=== PATIENT | female | born 1980 | race African-American/Black ===

== ENCOUNTER 2017-07-26 03:38 | Emergency (ER) | payer MEDICAID ==
[~2017-07-26] VITALS: Ht 162.6 cm; Wt 50.0 kg
[~2017-07-26 03:38] MED LIST: FAMO-135
[2017-07-26] MEDS ORDERED: SODIUM CHLORIDE 0.9% 1,000 ML IV ONE (04:39)
[2017-07-26] MEDS ORDERED: FAMOTIDINE 20MG/2ML VIAL IV STA (04:39)
[2017-07-26] MEDS ORDERED: ONDANSETRON HCL 4MG/2ML VIAL IV STA (04:39)
[2017-07-26] MEDS ORDERED: MORPHINE SULFATE 4 MG/ML CPJ (NOT FOR IM USE) IV STA (04:41)
[2017-07-26 04:57] LABS: CHLORIDE 107 mEq/L (98-107)
[2017-07-26 04:59] LABS: BASOPHILS % 0.3 % (0.0-2.0); EOSINOPHILS % 0.3 % (0.0-5.0); HEMATOCRIT. 39.8 % (36.0-48.0); LYMPHOCYTES % 35.7 % (20.0-50.0); MEAN CORPUSCULAR HEMOGLOBIN 33.6 pg (28.0-32.0); MEAN CORPUSCULAR VOLUME 95.6 fL (81.0-99.0); MEAN PLATELET VOLUME 7.9 fl (7.4-10.4); MONOCYTES % 9.5 % (2.0-8.0); NEUTROPHILS % 54.2 % (40.0-76.0); PLATELET 340 x1000/uL (130-400); RED BLOOD CELL COUNT 4.17 mill/uL (4.2-5.4); RED CELL DISTRIBUTION WIDTH 12.3 % (11.6-14.6)
[2017-07-26 05:01] LABS: ETHANOL BLOOD < 10 mg/dL
[2017-07-26 05:01] LABS: CLARITY URINE CLEAR (CLEAR); COLOR URINE DARK YELLOW (YELLOW); KETONES URINE 4+ (NEGATIVE); LEUKOCYTE ESTERASE URINE TRACE (NEGATIVE); NITRITE URINE NEGATIVE (NEGATIVE); OCCULT BLOOD URINE 3+ (NEGATIVE); PH URINE 5.5 (4.5-8.0); PROTEIN URINE TRACE (NEGATIVE)
[2017-07-26 05:07] LABS: INR 1.1; PROTHROMBIN TIME 11.4 sec (9.4-11.6)
[2017-07-26 05:12] LABS: *AMPHETAMINES SCREEN URINE NEGATIVE (NEGATIVE); *BARBITURATES SCREEN URINE NEGATIVE (NEGATIVE); *BENZODIAZEPINES SCREEN URINE NEGATIVE (NEGATIVE); *COCAINE SCREEN URINE NEGATIVE (NEGATIVE)
[2017-07-26 05:13] LABS: METHADONE URINE SCREEN NEGATIVE (NEGATIVE); PHENCYCLIDINE URINE SCREEN NEGATIVE (NEGATIVE)
[2017-07-26 05:36] LABS: OPIATES URINE SCREEN PRESUMTIVE POSITIVE (NEGATIVE)
[2017-07-26 05:37] LABS: CANNABINOID URINE SCREEN PRESUMTIVE POSITIVE (NEGATIVE)
[2017-07-26] MEDS ORDERED: KETOROLAC 30MG/ML VIAL IV ONE (08:00)
[2017-07-26] MEDS ORDERED: METOCLOPRAMIDE HCL 10MG/2ML VIAL IV ONE (08:00)
[2017-07-26 08:06] VITALS: BP 112/53
[2017-07-26 14:03] LABS: UCG SCREEN NEGATIVE
== END 2017-07-26 08:15 | disposition home or self-care (01) ==
LOC: ER 03:38
DX: T40.7X5A Adverse effect of cannabis (derivatives), initial encounter (principal); N39.0 Urinary tract infection, site not specified; K21.9 Gastro-esophageal reflux disease without esophagitis; Z88.5 Allergy status to narcotic agent; Y92.89 Other specified places as the place of occurrence of the external cause
CPT/HCPCS: 36415; 76705; 76830; 76856; 80053; 80305; 81003; 81025; 83690; 85025; 85610; 96361; 96374; 96375; 99285; G0482; J1885; J2270; J2405; J2765; J3490; J7030; Z7610

== ENCOUNTER 2017-12-09 08:17 | Emergency (ER) | payer MEDICAID ==
[~2017-12-09] VITALS: Ht 162.6 cm; Wt 66.0 kg
[2017-12-09] MEDS ORDERED: SODIUM CHLORIDE 0.9% 1,000 ML IV ONE (10:27)
[2017-12-09] MEDS ORDERED: MORPHINE SULFATE 4 MG/ML CPJ (NOT FOR IM USE) IV STA (10:27)
[2017-12-09] MEDS ORDERED: PANTOPRAZOLE SODIUM 40 MG/VIAL IV STA (10:27)
[2017-12-09] MEDS ORDERED: ONDANSETRON HCL 4MG/2ML INJ IV STA (10:27)
[2017-12-09 11:47] LABS: BASOPHILS % 0.1 % (0.0-2.0); EOSINOPHILS % 0.2 % (0.0-5.0); HEMATOCRIT. 41.7 % (36.0-48.0); HEMOGLOBIN. 14.2 g/dL (12.0-16.0); LYMPHOCYTES % 41.8 % (20.0-50.0); MEAN CORPUSCULAR HEMOGLOBIN 32.9 pg (28.0-32.0); MEAN CORPUSCULAR VOLUME 96.4 fL (81.0-99.0); MEAN PLATELET VOLUME 7.9 fl (7.4-10.4); MONOCYTES % 9.6 % (2.0-8.0); NEUTROPHILS % 48.3 % (40.0-76.0); PLATELET 271 x1000/uL (130-400); RED BLOOD CELL COUNT 4.32 mill/uL (4.2-5.4); RED CELL DISTRIBUTION WIDTH 12.6 % (11.6-14.6)
[2017-12-09 11:55] LABS: CHLORIDE 103 mEq/L (98-107); INR 1.1; PROTHROMBIN TIME 10.6 sec (9.1-11.1)
[2017-12-09 11:58] LABS: HCG SCREEN NEGATIVE
[2017-12-09 12:44] LABS: CLARITY URINE CLEAR (CLEAR); COLOR URINE DARK YELLOW (YELLOW); KETONES URINE 4+ (NEGATIVE); LEUKOCYTE ESTERASE URINE NEGATIVE (NEGATIVE); NITRITE URINE NEGATIVE (NEGATIVE); OCCULT BLOOD URINE NEGATIVE (NEGATIVE); PROTEIN URINE 1+ (NEGATIVE); SPECIFIC GRAVITY URINE 1.034 (1.005-1.030)
[2017-12-09] MEDS ORDERED: ONDANSETRON HCL 4MG/2ML INJ IV ONE (14:00)
[2017-12-09] MEDS ORDERED: MAGNESIUM/ALUMINUM HYDROXIDE/SIMETHICONE 30ML UDC PO STA (14:40)
[2017-12-09] MEDS ORDERED: VISCOUS LIDOCAINE 2% 15 ML UDC PO STA (14:40)
[2017-12-09 15:42] VITALS: BP 127/77
== END 2017-12-09 15:43 | disposition home or self-care (01) ==
LOC: ER 10:58
DX: K29.70 Gastritis, unspecified, without bleeding (principal); E87.6 Hypokalemia; R03.0 Elevated blood-pressure reading, without diagnosis of hypertension; Z88.5 Allergy status to narcotic agent
CPT/HCPCS: 36415; 80053; 81003; 81025; 83605; 83690; 84703; 85025; 85610; 96361; 96374; 96375; 96376; 99285; C9113; J2270; J2405; J7030

== ENCOUNTER 2019-01-02 04:59 | Emergency (ER) | payer MEDICAID ==
[~2019-01-02] VITALS: Ht 162.6 cm; Wt 50.0 kg
[2019-01-02 05:35] LABS: BASOPHILS % 0.4 % (0.0-2.0); EOSINOPHILS % 0.2 % (0.0-5.0); HEMATOCRIT. 39.5 % (36.0-48.0); HEMOGLOBIN. 13.6 g/dL (12.0-16.0); LYMPHOCYTES % 37.6 % (20.0-50.0); MEAN CORPUSCULAR HEMOGLOBIN 33.9 pg (28.0-32.0); MEAN CORPUSCULAR VOLUME 98.7 fL (81.0-99.0); MEAN PLATELET VOLUME 7.8 fl (7.4-10.4); MONOCYTES % 9.4 % (2.0-8.0); NEUTROPHILS % 52.4 % (40.0-76.0); PLATELET 265 x1000/uL (130-400); RED CELL DISTRIBUTION WIDTH 12.5 % (11.6-14.6)
[2019-01-02 05:42] LABS: CHLORIDE 107 mEq/L (98-107)
[2019-01-02 05:44] LABS: PROTHROMBIN TIME 10.7 sec (9.6-11.0)
[2019-01-02] MEDS ORDERED: ONDANSETRON HCL 4MG/2ML INJ IV STA (06:12)
[2019-01-02] MEDS ORDERED: KETOROLAC 30MG/ML VIAL IV STA (06:12)
[2019-01-02] MEDS ORDERED: MORPHINE SULFATE 4 MG/ML CPJ (NOT FOR IM USE) IV STA (06:12)
[2019-01-02] MEDS ORDERED: SODIUM CHLORIDE 0.9% 1,000 ML IV ONE (06:12)
[2019-01-02] MEDS ORDERED: FAMOTIDINE 20MG/2ML VIAL IV ONE (06:15)
[2019-01-02 06:33] LABS: HCG SCREEN NEGATIVE
[2019-01-02 06:53] LABS: CLARITY URINE CLOUDY (CLEAR); COLOR URINE ORANGE (YELLOW); KETONES URINE 4+ (NEGATIVE); LEUKOCYTE ESTERASE URINE TRACE (NEGATIVE); NITRITE URINE NEGATIVE (NEGATIVE); OCCULT BLOOD URINE 3+ (NEGATIVE); PROTEIN URINE 2+ (NEGATIVE); SPECIFIC GRAVITY URINE 1.039 (1.005-1.030)
[2019-01-02 07:17] VITALS: BP 101/55
[2019-01-02 07:54] LABS: *AMPHETAMINES SCREEN URINE NEGATIVE (NEGATIVE); *BARBITURATES SCREEN URINE NEGATIVE (NEGATIVE); *BENZODIAZEPINES SCREEN URINE NEGATIVE (NEGATIVE); *COCAINE SCREEN URINE NEGATIVE (NEGATIVE); METHADONE URINE SCREEN NEGATIVE (NEGATIVE); PHENCYCLIDINE URINE SCREEN NEGATIVE (NEGATIVE)
[2019-01-02 08:03] LABS: CANNABINOID URINE SCREEN PRESUMTIVE POSITIVE (NEGATIVE); OPIATES URINE SCREEN PRESUMTIVE POSITIVE (NEGATIVE)
== END 2019-01-02 08:33 | disposition home or self-care (01) ==
LOC: ER 04:59
DX: K85.90 Acute pancreatitis without necrosis or infection, unspecified (principal); E87.8 Other disorders of electrolyte and fluid balance, not elsewhere classified; R11.2 Nausea with vomiting, unspecified; F10.10 Alcohol abuse, uncomplicated; Y90.0 Blood alcohol level of less than 20 mg/100 ml; Z98.890 Other specified postprocedural states; Z88.5 Allergy status to narcotic agent
CPT/HCPCS: 36415; 80053; 80305; 81003; 81025; 83690; 84703; 85025; 85610; 96374; 96375; 99283; J1885; J2270; J2405; J3490; J7030

== ENCOUNTER 2019-04-10 18:54 | Emergency (ER) | payer OTHER ==
[~2019-04-10] VITALS: Ht 162.6 cm; Wt 48.0 kg
[2019-04-10] MEDS ORDERED: SODIUM CHLORIDE 0.9% 1,000 ML IV ONE (22:23)
[2019-04-10] MEDS ORDERED: MAGNESIUM/ALUMINUM HYDROXIDE/SIMETHICONE 30ML UDC PO STA (22:23)
[2019-04-10] MEDS ORDERED: MORPHINE SULFATE 4 MG/ML CPJ (NOT FOR IM USE) IV STA (22:23)
[2019-04-10] MEDS ORDERED: HALOPERIDOL LACTATE 5MG/ML VIAL IM ONE (22:30)
[2019-04-10 22:51] LABS: BASOPHILS % 0.1 % (0.0-2.0); EOSINOPHILS % 0.4 % (0.0-5.0); HEMATOCRIT. 43.5 % (36.0-48.0); HEMOGLOBIN. 14.7 g/dL (12.0-16.0); MEAN CORPUSCULAR VOLUME 97.6 fL (81.0-99.0); MEAN PLATELET VOLUME 7.4 fl (7.4-10.4); MONOCYTES % 2.6 % (2.0-8.0); NEUTROPHILS % 85.9 % (40.0-76.0); PLATELET 262 x1000/uL (130-400); RED BLOOD CELL COUNT 4.46 mill/uL (4.2-5.4); RED CELL DISTRIBUTION WIDTH 12.6 % (11.6-14.6)
[2019-04-10 22:57] LABS: CHLORIDE 110 mEq/L (98-107)
[2019-04-10 22:58] LABS: INR 1.1; PROTHROMBIN TIME 11.3 sec (9.6-11.0)
[2019-04-10 23:00] LABS: ETHANOL BLOOD < 10 mg/dL
[2019-04-11 00:02] LABS: CLARITY URINE CLEAR (CLEAR); COLOR URINE YELLOW (YELLOW); KETONES URINE 4+ (NEGATIVE); LEUKOCYTE ESTERASE URINE NEGATIVE (NEGATIVE); NITRITE URINE NEGATIVE (NEGATIVE); OCCULT BLOOD URINE NEGATIVE (NEGATIVE); PH URINE 7.5 (4.5-8.0); PROTEIN URINE 1+ (NEGATIVE); SPECIFIC GRAVITY URINE 1.033 (1.005-1.030)
[2019-04-11 00:28] LABS: *AMPHETAMINES SCREEN URINE NEGATIVE (NEGATIVE); *BARBITURATES SCREEN URINE NEGATIVE (NEGATIVE)
[2019-04-11 00:29] LABS: *BENZODIAZEPINES SCREEN URINE NEGATIVE (NEGATIVE); *COCAINE SCREEN URINE NEGATIVE (NEGATIVE); METHADONE URINE SCREEN NEGATIVE (NEGATIVE); OPIATES URINE SCREEN NEGATIVE (NEGATIVE); PHENCYCLIDINE URINE SCREEN NEGATIVE (NEGATIVE)
[2019-04-11 00:30] LABS: CANNABINOID URINE SCREEN PRESUMTIVE POSITIVE (NEGATIVE)
[2019-04-11] MEDS ORDERED: ONDANSETRON HCL 4MG/2ML INJ IV ONE (03:00)
[2019-04-11 03:09] VITALS: BP 117/51
== END 2019-04-11 04:19 | disposition home or self-care (01) ==
LOC: ER 18:54
DX: R10.13 Epigastric pain (principal); R11.10 Vomiting, unspecified; F12.10 Cannabis abuse, uncomplicated; Z98.890 Other specified postprocedural states; Z87.19 Personal history of other diseases of the digestive system; Z88.5 Allergy status to narcotic agent
CPT/HCPCS: 36415; 71045; 74176; 80053; 80305; 80320; 81003; 81025; 83690; 84484; 85025; 85610; 93005; 96361; 96372; 96374; 96375; 99284; J1630; J2270; J2405; J7030; Z7610; G0480

== ENCOUNTER 2019-04-12 09:07 | Emergency (ER) | payer OTHER ==
[~2019-04-12] VITALS: Ht 162.6 cm; Wt 47.0 kg
[2019-04-12] MEDS ORDERED: ONDANSETRON HCL 4MG/2ML INJ IV STA (16:43)
[2019-04-12] MEDS ORDERED: MORPHINE SULFATE 4 MG/ML CPJ (NOT FOR IM USE) IV STA (16:43)
[2019-04-12] MEDS ORDERED: SODIUM CHLORIDE 0.9% 1,000 ML IV ONE (16:43)
[2019-04-12] MEDS ORDERED: FAMOTIDINE 20MG/2ML VIAL IV STA (16:43)
[2019-04-12 17:21] LABS: CHLORIDE 105 mEq/L (98-107)
[2019-04-12 17:22] LABS: INR 1.1; PROTHROMBIN TIME 10.8 sec (9.6-11.0)
[2019-04-12 17:24] LABS: BASOPHILS % 0.3 % (0.0-2.0); EOSINOPHILS % 0.3 % (0.0-5.0); HEMATOCRIT. 43.5 % (36.0-48.0); HEMOGLOBIN. 14.7 g/dL (12.0-16.0); LYMPHOCYTES % 37.9 % (20.0-50.0); MEAN CORPUSCULAR HEMOGLOBIN 32.7 pg (28.0-32.0); MEAN CORPUSCULAR VOLUME 96.6 fL (81.0-99.0); MONOCYTES % 10.9 % (2.0-8.0); NEUTROPHILS % 50.6 % (40.0-76.0); PLATELET 256 x1000/uL (130-400); RED BLOOD CELL COUNT 4.51 mill/uL (4.2-5.4); RED CELL DISTRIBUTION WIDTH 12.8 % (11.6-14.6)
[2019-04-12 17:26] LABS: HCG SCREEN NEGATIVE
[2019-04-12] MEDS ORDERED: DICYCLOMINE 10 MG/5 ML ORAL SYR PO STA (17:58)
[2019-04-12] MEDS ORDERED: MAGNESIUM/ALUMINUM HYDROXIDE/SIMETHICONE 30ML UDC PO STA (17:58)
[2019-04-12] MEDS ORDERED: VISCOUS LIDOCAINE 2% 15 ML UDC PO STA (17:58)
[2019-04-12 18:40] VITALS: BP 103/64
== END 2019-04-12 18:54 | disposition home or self-care (01) ==
LOC: ER 10:07
DX: R10.13 Epigastric pain (principal); Z98.890 Other specified postprocedural states; Z88.5 Allergy status to narcotic agent
CPT/HCPCS: 36415; 80053; 83690; 84703; 85025; 85610; 96361; 96374; 96375; 99284; J2270; J2405; J3490; J7030

== ENCOUNTER 2019-06-24 15:13 | Emergency (ER) | payer OTHER ==
[~2019-06-24] VITALS: Ht 162.6 cm; Wt 49.0 kg
[2019-06-24 17:36] VITALS: BP 119/62
[2019-06-24] MEDS ORDERED: ONDANSETRON HCL 4MG/2ML INJ IV STA (17:45)
[2019-06-24] MEDS ORDERED: SODIUM CHLORIDE 0.9% 1,000 ML IV ONE (17:45)
[2019-06-24] MEDS ORDERED: KETOROLAC 30MG/ML VIAL IV STA (17:45)
[2019-06-24 17:55] LABS: BASOPHILS % 0.2 % (0.0-2.0); HEMATOCRIT. 39.2 % (36.0-48.0); HEMOGLOBIN. 13.6 g/dL (12.0-16.0); LYMPHOCYTES % 23.8 % (20.0-50.0); MEAN CORPUSCULAR HEMOGLOBIN 33.7 pg (28.0-32.0); MEAN CORPUSCULAR VOLUME 97.1 fL (81.0-99.0); MEAN PLATELET VOLUME 8.1 fl (7.4-10.4); MONOCYTES % 9.3 % (2.0-8.0); NEUTROPHILS % 66.7 % (40.0-76.0); PLATELET 295 x1000/uL (130-400); RED BLOOD CELL COUNT 4.04 mill/uL (4.2-5.4); RED CELL DISTRIBUTION WIDTH 13.1 % (11.6-14.6)
[2019-06-24 17:58] LABS: CHLORIDE 106 mEq/L (98-107)
[2019-06-24 18:01] LABS: CLARITY URINE CLOUDY (CLEAR); COLOR URINE DARK YELLOW (YELLOW); KETONES URINE 3+ (NEGATIVE); LEUKOCYTE ESTERASE URINE TRACE (NEGATIVE); NITRITE URINE NEGATIVE (NEGATIVE); OCCULT BLOOD URINE 3+ (NEGATIVE); PROTEIN URINE 1+ (NEGATIVE); SPECIFIC GRAVITY URINE 1.039 (1.005-1.030); UROBILINOGEN URINE 0.2 E.U./dL (0.2-1.0)
[2019-06-24 18:04] LABS: HCG SCREEN NEGATIVE
[2019-06-24 18:10] LABS: PROTHROMBIN TIME 10.6 sec (9.6-11.0)
== END 2019-06-24 18:26 | disposition left against medical advice (07) ==
LOC: ER 15:13
DX: Z76.5 Malingerer [conscious simulation] (principal); R10.13 Epigastric pain; Z88.5 Allergy status to narcotic agent; Z98.890 Other specified postprocedural states; Z87.19 Personal history of other diseases of the digestive system
CPT/HCPCS: 36415; 80053; 81003; 81025; 83690; 84703; 85025; 85610; 96374; 96375; 99284; J1885; J2405; J7030

== ENCOUNTER 2019-11-01 19:35 | Emergency (ER) | payer OTHER, MEDICAID ==
[~2019-11-01] VITALS: Ht 162.6 cm; Wt 59.0 kg
[2019-11-01] MEDS ORDERED: ONDANSETRON HCL 4MG/2ML INJ IV STA (20:41)
[2019-11-01] MEDS ORDERED: SODIUM CHLORIDE 0.9% 1,000 ML IV ONE (20:41)
[2019-11-01] MEDS ORDERED: MAGNESIUM/ALUMINUM HYDROXIDE/SIMETHICONE 30ML UDC PO ONE (21:15)
[2019-11-01] MEDS ORDERED: VISCOUS LIDOCAINE 2% 15 ML UDC PO ONE (21:15)
[2019-11-01 21:33] LABS: BASOPHILS % 0.2 % (0.0-2.0); EOSINOPHILS % 0.3 % (0.0-5.0); HEMOGLOBIN. 14.5 g/dL (12.0-16.0); LYMPHOCYTES % 35.5 % (20.0-50.0); MEAN CORPUSCULAR HEMOGLOBIN 33.1 pg (28.0-32.0); MEAN PLATELET VOLUME 7.9 fl (7.4-10.4); MONOCYTES % 10.2 % (2.0-8.0); NEUTROPHILS % 53.8 % (40.0-76.0); PLATELET 294 x1000/uL (130-400); RED BLOOD CELL COUNT 4.38 mill/uL (4.2-5.4); RED CELL DISTRIBUTION WIDTH 12.9 % (11.6-14.6)
[2019-11-01 21:37] LABS: CHLORIDE 105 mEq/L (98-107)
[2019-11-01 21:39] LABS: PROTHROMBIN TIME 10.9 sec (9.6-11.0)
[2019-11-01 21:50] LABS: HCG SCREEN NEGATIVE
[2019-11-01 22:20] LABS: CLARITY URINE CLOUDY (CLEAR); COLOR URINE DARK YELLOW (YELLOW); KETONES URINE 4+ (NEGATIVE); LEUKOCYTE ESTERASE URINE TRACE (NEGATIVE); NITRITE URINE NEGATIVE (NEGATIVE); OCCULT BLOOD URINE NEGATIVE (NEGATIVE); PROTEIN URINE 1+ (NEGATIVE)
[2019-11-01] MEDS ORDERED: POTASSIUM CHLORIDE 20MEQ TABLET SR PO NR (22:30)
[2019-11-01] MEDS ORDERED: KETOROLAC 30MG/ML VIAL IV ONE (23:45)
[2019-11-02 00:09] VITALS: BP 101/67
== END 2019-11-02 00:11 | disposition home or self-care (01) ==
LOC: ER 19:35
DX: K52.9 Noninfective gastroenteritis and colitis, unspecified (principal)
CPT/HCPCS: 36415; 74176; 80053; 81003; 81025; 83690; 84484; 84703; 85025; 85610; 93005; 96361; 96374; 96375; 99285; J1885; J2405; J7030

== ENCOUNTER 2020-08-01 11:42 | Emergency (ER) | payer MEDICAID, OTHER ==
[~2020-08-01] VITALS: Ht 154.9 cm; Wt 57.0 kg
[2020-08-01 11:51] VITALS: BP 100/43
== END 2020-08-01 12:52 | disposition left against medical advice (07) ==
LOC: ER 11:42
DX: Z53.21 Procedure and treatment not carried out due to patient leaving prior to being seen by health care provider (principal)
CPT/HCPCS: 93005

== ENCOUNTER 2021-08-18 16:25 | Emergency (ER) | payer MEDICAID, OTHER ==
[~2021-08-18] VITALS: Ht 162.6 cm; Wt 48.0 kg
[2021-08-18] MEDS ORDERED: FAMOTIDINE 20MG/2ML VIAL IV STA (16:30)
[2021-08-18] MEDS ORDERED: MAGNESIUM/ALUMINUM HYDROXIDE/SIMETHICONE 30ML UDC PO STA (16:30)
[2021-08-18] MEDS ORDERED: SODIUM CHLORIDE 0.9% 1,000 ML IV ONE (16:30)
[2021-08-18] MEDS ORDERED: VISCOUS LIDOCAINE 2% 15 ML UDC PO STA (16:30)
[2021-08-18] MEDS ORDERED: ONDANSETRON HCL 4MG/2ML INJ IV STA (16:30)
[2021-08-18 17:09] LABS: BASOPHILS % 0.3 % (0.0-2.0); HEMATOCRIT. 41.6 % (36.0-48.0); HEMOGLOBIN. 14.1 g/dL (12.0-16.0); LYMPHOCYTES % 23.8 % (20.0-50.0); MEAN CORPUSCULAR HEMOGLOBIN 31.5 pg (28.0-32.0); MEAN PLATELET VOLUME 7.7 fl (7.4-10.4); MONOCYTES % 8.5 % (2.0-8.0); NEUTROPHILS % 67.4 % (40.0-76.0); PLATELET 263 x1000/uL (130-400); RED BLOOD CELL COUNT 4.48 mill/uL (4.2-5.4); RED CELL DISTRIBUTION WIDTH 13.2 % (11.6-14.6)
[2021-08-18 17:16] LABS: CHLORIDE 107 mEq/L (98-107)
[2021-08-18 17:26] LABS: HCG SCREEN NEGATIVE
[2021-08-18] MEDS ORDERED: HALOPERIDOL LACTATE 5MG/ML VIAL IM ONE (22:45)
[2021-08-18] MEDS ORDERED: ONDANSETRON HCL 4MG/2ML INJ IV NR (22:45)
[2021-08-18] MEDS ORDERED: KETOROLAC 15MG/ML VIAL IV NR (22:51)
[2021-08-18 23:43] VITALS: BP 110/66
[2021-08-18] MEDS ORDERED: VISCOUS LIDOCAINE 2% 15 ML UDC PO SCH (23:45)
[2021-08-18] MEDS ORDERED: FAMOTIDINE 20MG/2ML VIAL IV SCH (23:45)
[2021-08-18] MEDS ORDERED: HALOPERIDOL LACTATE 5MG/ML VIAL IM SCH (23:45)
[2021-08-18] MEDS ORDERED: MAGNESIUM/ALUMINUM HYDROXIDE/SIMETHICONE 30ML UDC PO SCH (23:45)
[2021-08-18] MEDS ORDERED: ONDANSETRON HCL 4MG/2ML INJ IV SCH (23:45)
[2021-08-18 23:56] LABS: CLARITY URINE CLOUDY (CLEAR); COLOR URINE DARK YELLOW (YELLOW); KETONES URINE 3+ (NEGATIVE); LEUKOCYTE ESTERASE URINE 1+ (NEGATIVE); NITRITE URINE NEGATIVE (NEGATIVE); OCCULT BLOOD URINE NEGATIVE (NEGATIVE); PROTEIN URINE 2+ (NEGATIVE); SPECIFIC GRAVITY URINE 1.036 (1.005-1.030)
[2021-08-19 00:14] LABS: *AMPHETAMINES SCREEN URINE NEGATIVE (NEGATIVE); *BARBITURATES SCREEN URINE NEGATIVE (NEGATIVE); *BENZODIAZEPINES SCREEN URINE NEGATIVE (NEGATIVE); *COCAINE SCREEN URINE NEGATIVE (NEGATIVE); METHADONE URINE SCREEN NEGATIVE (NEGATIVE); OPIATES URINE SCREEN NEGATIVE (NEGATIVE); PHENCYCLIDINE URINE SCREEN NEGATIVE (NEGATIVE)
[2021-08-19 00:21] LABS: CANNABINOID URINE SCREEN PRESUMTIVE POSITIVE (NEGATIVE)
== END 2021-08-19 00:30 | disposition home or self-care (01) ==
LOC: ER 16:25
DX: F12.188 Cannabis abuse with other cannabis-induced disorder (principal); R11.2 Nausea with vomiting, unspecified; K21.9 Gastro-esophageal reflux disease without esophagitis; Z98.890 Other specified postprocedural states; Z88.5 Allergy status to narcotic agent
CPT/HCPCS: 36415; 80053; 80305; 81003; 81025; 83690; 84703; 85025; 87086; 93005; 96361; 96374; 96375; 99284; J1885; J2405; J3490; J7030

== ENCOUNTER 2023-05-22 10:20 | Emergency (ER) | payer OTHER ==
[~2023-05-22] VITALS: Ht 162.6 cm; Wt 48.5 kg
[2023-05-22 10:27] VITALS: O2SAT 97
[2023-05-22 11:07] LABS: BASOPHILS % 0.1 % (0.0-2.0); EOSINOPHILS % 0.1 % (0.0-5.0); HEMATOCRIT. 36.9 % (36.0-48.0); HEMOGLOBIN. 12.7 g/dL (12.0-16.0); LYMPHOCYTES % 18.4 % (20.0-50.0); MEAN CORPUSCULAR HEMOGLOBIN 33.3 pg (28.0-32.0); MEAN CORPUSCULAR HGB CONC 34.4 g/dL (31.0-37.0); MEAN CORPUSCULAR VOLUME 96.7 fL (81.0-99.0); MEAN PLATELET VOLUME 7.9 fl (7.4-10.4); MONOCYTES % 3.7 % (2.0-8.0); NEUTROPHILS % 77.7 % (40.0-76.0); PLATELET 295 x1000/uL (130-400); RED BLOOD CELL COUNT 3.81 mill/uL (4.2-5.4); RED CELL DISTRIBUTION WIDTH 13.8 % (11.6-14.6); WHITE BLOOD COUNT 7.3 x1000/uL (4.5-11.0)
[2023-05-22 11:29] LABS: ALANINE AMINOTRANSFERASE 17 IU/L (10-49); ALBUMIN 4.5 g/dL (3.2-4.8); ASPARTATE AMINOTRANSFERASE 19 IU/L (<34); BILIRUBIN TOTAL 0.7 mg/dL (0.1-1.0); CALCIUM 9.1 mg/dL (8.7-10.4); CARBON DIOXIDE 27 mEq/L (21-32); CHLORIDE 110 mEq/L (98-107); CREATININE 0.7 mg/dL (0.6-1.0); GLUCOSE 147 mg/dL (70-105); POTASSIUM 3.3 mEq/L (3.5-5.1); SODIUM 143 mEq/L (136-145); UREA NITROGEN BLOOD 10 mg/dL (9-23)
[2023-05-22] MEDS: SODIUM CHLORIDE 0.9% 1,000 ML IV ONE ×2 (11:35→14:15)
[2023-05-22] MEDS: FAMOTIDINE 20MG/2ML VIAL IV STA (11:35)
[2023-05-22] MEDS: MAGNESIUM/ALUMINUM HYDROXIDE/SIMETHICONE 30ML UDC PO STA (11:35)
[2023-05-22] MEDS: ONDANSETRON HCL 4MG/2ML INJ IV STA (11:35)
[2023-05-22 11:40] LABS: ETHANOL BLOOD < 10 mg/dL (<10)
[2023-05-22 11:58] LABS: HCG SCREEN NEGATIVE
[2023-05-22] MEDS: POTASSIUM CHLORIDE 20MEQ/PACKET PO ONE (12:54)
[2023-05-22] MEDS: HALOPERIDOL LACTATE 5MG/ML VIAL IM ONE (12:54)
[2023-05-22 13:09] LABS: CLARITY URINE CLEAR (CLEAR); COLOR URINE YELLOW (YELLOW); GLUCOSE URINE NEGATIVE (NEGATIVE); KETONES URINE 2+ (NEGATIVE); LEUKOCYTE ESTERASE URINE NEGATIVE (NEGATIVE); NITRITE URINE NEGATIVE (NEGATIVE); OCCULT BLOOD URINE TRACE (NEGATIVE); PH URINE 8.5 (4.5-8.0); PROTEIN URINE NEGATIVE (NEGATIVE); SPECIFIC GRAVITY URINE 1.015 (1.005-1.030); UROBILINOGEN URINE 0.2 E.U./dL (0.2-1.0)
[2023-05-22 14:07] LABS: SQUAMOUS EPITHELIAL CELL URINE 2+ /lpf (RARE/1+)
[2023-05-22 14:10] LABS: MUCUS URINE TRACE /lpf (< = 2+)
[2023-05-22 14:12] LABS: TRICHOMONAS URINE 1+; WBC URINE 0-2 /hpf (0-2)
[2023-05-22 14:13] LABS: BACTERIA URINE TRACE
[2023-05-22 14:14] LABS: RBC URINE NONE SEEN /hpf (0-2)
[2023-05-22 14:29] LABS: *AMPHETAMINES SCREEN URINE NEGATIVE (NEGATIVE); *BARBITURATES SCREEN URINE NEGATIVE (NEGATIVE); *BENZODIAZEPINES SCREEN URINE NEGATIVE (NEGATIVE); *COCAINE SCREEN URINE NEGATIVE (NEGATIVE); CANNABINOID URINE SCREEN PRESUMPTIVE POSITIVE (NEGATIVE); ECSTASY MDMA SCREEN URINE NEGATIVE (NEGATIVE); METHADONE URINE SCREEN Neg (NEGATIVE); OPIATES URINE SCREEN NEGATIVE (NEGATIVE); PHENCYCLIDINE URINE SCREEN NEGATIVE (NEGATIVE)
[2023-05-22 15:18] VITALS: BP 121/67; PULSE 71; RESP 18; TEMP 98.3
== END 2023-05-22 15:20 | disposition home or self-care (01) ==
LOC: ER 10:20
DX: E86.0 Dehydration (principal); Z88.5 Allergy status to narcotic agent; Z98.890 Other specified postprocedural states
CPT/HCPCS: 80053; 80305; 81003; 80320; 84703; 83690; 85025; 36415; 71045; 96361; 96372; 96374; 96375; 99284; J3490; J1630; J2405; J7030; Z7610; G0480

== ENCOUNTER 2023-09-22 21:03 | Emergency (ER) | payer MEDICAID ==
[~2023-09-22] VITALS: Ht 162.6 cm; Wt 58.0 kg
[2023-09-22 21:16] VITALS: O2SAT 100
[2023-09-22 22:23] LABS: BASOPHILS % 0.2 % (0.0-2.0); EOSINOPHILS % 0.1 % (0.0-5.0); HEMATOCRIT. 45.3 % (36.0-48.0); HEMOGLOBIN. 15.7 g/dL (12.0-16.0); LYMPHOCYTES % 30.4 % (20.0-50.0); MEAN CORPUSCULAR HEMOGLOBIN 33.1 pg (28.0-32.0); MEAN CORPUSCULAR HGB CONC 34.7 g/dL (31.0-37.0); MEAN CORPUSCULAR VOLUME 95.6 fL (81.0-99.0); MEAN PLATELET VOLUME 7.4 fl (7.4-10.4); MONOCYTES % 9.8 % (2.0-8.0); NEUTROPHILS % 59.5 % (40.0-76.0); PLATELET 302 x1000/uL (130-400); RED BLOOD CELL COUNT 4.74 mill/uL (4.2-5.4); RED CELL DISTRIBUTION WIDTH 13.4 % (11.6-14.6); WHITE BLOOD COUNT 8.2 x1000/uL (4.5-11.0)
[2023-09-22] MEDS ORDERED: DICYCLOMINE 10 MG/5 ML ORAL SYR PO STA (22:26)
[2023-09-22] MEDS: ONDANSETRON 4MG ODT PO STA (22:26)
[2023-09-22] MEDS: MAGNESIUM/ALUMINUM HYDROXIDE/SIMETHICONE 30ML UDC PO STA (22:26)
[2023-09-22 22:30] LABS: CHLORIDE 100 mEq/L (98-107); POTASSIUM 3.3 mEq/L (3.5-5.1); SODIUM 139 mEq/L (136-145)
[2023-09-22 22:31] LABS: CALCIUM 9.6 mg/dL (8.7-10.4); CARBON DIOXIDE 28 mEq/L (21-32); HCG SCREEN NEGATIVE
[2023-09-22 22:36] LABS: CREATININE 0.9 mg/dL (0.6-1.0); GLUCOSE 118 mg/dL (70-105); UREA NITROGEN BLOOD 11 mg/dL (9-23)
[2023-09-22 22:37] LABS: ALANINE AMINOTRANSFERASE 14 IU/L (10-49)
[2023-09-22 22:38] LABS: ALBUMIN 4.7 g/dL (3.2-4.8); ASPARTATE AMINOTRANSFERASE 18 IU/L (<34); BILIRUBIN DIRECT 0.6 mg/dL (<=3.0); BILIRUBIN TOTAL 1.8 mg/dL (0.1-1.0); PROTEIN TOTAL 7.7 g/dL (6.0-8.3)
[2023-09-22] MEDS: DICYCLOMINE HCL 10MG CAPSULE PO NR (23:07)
[2023-09-22 23:25] VITALS: BP 134/66; PULSE 77; RESP 20; TEMP 98
[2023-09-22] MEDS ORDERED: FAMO-135 MT (23:27)
== END 2023-09-22 23:50 | disposition home or self-care (01) ==
LOC: ER 21:03
DX: K29.60 Other gastritis without bleeding (principal); K21.9 Gastro-esophageal reflux disease without esophagitis; E87.6 Hypokalemia; Z98.890 Other specified postprocedural states; Z88.2 Allergy status to sulfonamides
CPT/HCPCS: 99284; 80076; 80048; 84703; 83690; 85025; 36415; Q0162

== ENCOUNTER 2024-01-19 23:42 | Emergency (ER) | payer MEDICAID ==
[~2024-01-19] VITALS: Ht 162.6 cm; Wt 61.0 kg
[~2024-01-19 23:42] MED LIST changes: +FAMO-135 MT
[2024-01-20 00:18] VITALS: TEMP 98.8; O2SAT 100
[2024-01-20] MEDS ORDERED: ONDANSETRON HCL 4MG TABLET PO ONE (01:30)
[2024-01-20 01:53] LABS: BASOPHILS % 0.3 % (0.0-2.0); HEMATOCRIT. 41.7 % (36.0-48.0); HEMOGLOBIN. 14.1 g/dL (12.0-16.0); LYMPHOCYTES % 21.6 % (20.0-50.0); MEAN CORPUSCULAR HEMOGLOBIN 32.1 pg (28.0-32.0); MEAN CORPUSCULAR HGB CONC 33.8 g/dL (31.0-37.0); MEAN CORPUSCULAR VOLUME 95.1 fL (81.0-99.0); MEAN PLATELET VOLUME 7.3 fl (7.4-10.4); MONOCYTES % 8.7 % (2.0-8.0); NEUTROPHILS % 69.4 % (40.0-76.0); PLATELET 324 x1000/uL (130-400); RED BLOOD CELL COUNT 4.39 mill/uL (4.2-5.4); RED CELL DISTRIBUTION WIDTH 13.4 % (11.6-14.6)
[2024-01-20 02:01] LABS: CARBON DIOXIDE 24 mEq/L (21-32); CHLORIDE 110 mEq/L (98-107); POTASSIUM 3.8 mEq/L (3.5-5.1); SODIUM 142 mEq/L (136-145)
[2024-01-20 02:02] LABS: CALCIUM 9.8 mg/dL (8.7-10.4)
[2024-01-20 02:06] LABS: CREATININE 0.8 mg/dL (0.6-1.0); GLUCOSE 131 mg/dL (70-105)
[2024-01-20 02:07] LABS: UREA NITROGEN BLOOD 13 mg/dL (9-23)
[2024-01-20 02:08] LABS: ALANINE AMINOTRANSFERASE 14 IU/L (10-49); ALBUMIN 4.8 g/dL (3.2-4.8); ASPARTATE AMINOTRANSFERASE 12 IU/L (<34)
[2024-01-20 02:09] LABS: BILIRUBIN DIRECT 0.3 mg/dL (<=3.0); BILIRUBIN TOTAL 1.1 mg/dL (0.1-1.0); PROTEIN TOTAL 7.9 g/dL (6.0-8.3)
[2024-01-20 02:46] LABS: HCG SCREEN NEGATIVE
[2024-01-20] MEDS ORDERED: METOCLOPRAMIDE 10MG/10 ML UDC PO ONE (04:00)
[2024-01-20 04:37] VITALS: BP 111/51; PULSE 61; RESP 15; O2SAT 98
[2024-01-20] MEDS: METOCLOPRAMIDE HCL 5MG TABLET PO ONE (04:37)
== END 2024-01-20 04:38 | disposition home or self-care (01) ==
LOC: ER 23:42
DX: R10.11 Right upper quadrant pain (principal); R11.2 Nausea with vomiting, unspecified; Z88.5 Allergy status to narcotic agent
CPT/HCPCS: 99284; 76705; 80076; 80048; 84703; 83690; 85025; 36415; J8597; Q0162

== ENCOUNTER 2024-10-29 07:12 | Emergency (ER) | payer MEDICAID ==
[2024-10-29 07:13] VITALS: PULSE 84; RESP 14; O2SAT 99
== END 2024-10-29 07:40 | disposition left against medical advice (07) ==
LOC: ER 07:12
DX: K08.89 Other specified disorders of teeth and supporting structures (principal); Z53.21 Procedure and treatment not carried out due to patient leaving prior to being seen by health care provider

== ENCOUNTER 2024-11-19 22:26 | Emergency (ER) | payer MEDICAID ==
[~2024-11-19] VITALS: Ht 167.6 cm; Wt 65.0 kg
[2024-11-19 22:27] VITALS: O2SAT 100
[2024-11-19 23:07] VITALS: BP 127/76; PULSE 74; RESP 16; TEMP 36.7; O2SAT 100
[2024-11-20 00:03] LABS: BASOPHILS % 0.7 % (0.0-2.0); EOSINOPHILS % 2.2 % (0.0-5.0); HEMATOCRIT. 37.9 % (36.0-48.0); HEMOGLOBIN. 12.9 g/dL (12.0-16.0); LYMPHOCYTES % 63.6 % (20.0-50.0); MEAN PLATELET VOLUME 7.1 fl (7.4-10.4); MONOCYTES % 9.2 % (2.0-8.0); NEUTROPHILS % 24.3 % (40.0-76.0); PLATELET 307 x1000/uL (130-400); RED BLOOD CELL COUNT 3.87 mill/uL (4.2-5.4); RED CELL DISTRIBUTION WIDTH 12.8 % (11.6-14.6)
[2024-11-20 00:15] LABS: CREATININE 0.7 mg/dL (0.6-1.0); UREA NITROGEN BLOOD 8 mg/dL (9-23)
[2024-11-20] MEDS: IBUPROFEN 600MG TABLET PO ONE (01:46)
== END 2024-11-20 03:49 | disposition left against medical advice (07) ==
LOC: ER 22:26
DX: N63.10 Unspecified lump in the right breast, unspecified quadrant (principal); Z88.5 Allergy status to narcotic agent
CPT/HCPCS: 36415; 76641; 80048; 85025; 99284